=== PATIENT | male | born 1970 | race African-American/Black ===

== ENCOUNTER 2019-09-24 16:08 | Inpatient (IN) ==
[2019-09-24] MEDS ORDERED: ENOXAPARIN 100 MG/ML SYRINGE SUBCUT STA (17:14)
[2019-09-24] MEDS ORDERED: ASPIRIN 325 MG TABLET PO STA (17:14)
[2019-09-24] MEDS ORDERED: METOPROLOL TARTRATE 5 MG/5 ML VIAL IV STA (17:14)
[2019-09-24 17:22] LABS: Basophils # 0.1 10*3/uL (0.0-0.2); Basophils % 0.4 % (0.0-0.8); Eosinophils # 0.3 10*3/uL (0.0-0.87); Hematocrit 43.6 VOL% (42.0-52.0); Hemoglobin 13.8 GM/DL (14.0-18.0); Immature Granulocytes % 0.5 %; Immature Granulocytes Absolute 0.06 #; Lymphocytes # 3.5 10*3/uL (1.4-4.0); Lymphocytes % 28.6 % (21.2-54.2); Mean Corpuscular HGB Conc 31.7 GM/DL (32-36); Mean Corpuscular Volume 83.4 FL (87-102); Mean Platelet Volume 10.1 FL (9.6-12.0); Monocytes % 10.5 % (1.7-12.7); Platelet Count 274 T/CUMM (130-400); Red Blood Count 5.23 MC/CUMM (3.8-5.5); Red Cell Distribution Width 15.4 % (9.3-17.3); White Blood Count 12.2 T/CUMM (4-12)
[2019-09-24 17:59] LABS: Albumin 3.6 G/DL (3.4-5.0); Bilirubin,Total 0.6 MG/DL (0.2-1.0); Calcium 9.2 MG/DL (8.5-10.1); Osmolality,Calculated 281.3 MOS/KG (273-304); Total Protein 8.2 G/DL (6.4-8.3)
[2019-09-24] MEDS ORDERED: hydrALAZINE 20 MG/1 ML VIAL IV STA (18:27)
[2019-09-24 19:04] LABS: PT Patient Result 10.4 SECS (9.8-11.9)
[2019-09-24] MEDS ORDERED: hydrALAZINE 20 MG/1 ML VIAL IV ONE (19:54)
[2019-09-24] MEDS ORDERED: SODIUM CHLORIDE 0.9% 1,000 ML IV SCH (20:17)
[2019-09-24] MEDS ORDERED: ONDANSETRON 4 MG/2 ML VIAL IV PRN (20:17)
[2019-09-24] MEDS ORDERED: hydrALAZINE 20 MG/1 ML VIAL IV PRN (20:17)
[2019-09-24] MEDS ORDERED: MORPHINE 4 MG/1 ML VIAL IV PRN (20:17)
[2019-09-24] MEDS ORDERED: ACETAMINOPHEN 325 MG TABLET PO PRN (20:17)
[2019-09-24] MEDS: ENOXAPARIN 120 MG/0.8 ML SYRINGE SUBCUT SCH (20:58)
[2019-09-24] MEDS: DOCUSATE SODIUM 100 MG CAPSULE PO SCH (21:10)
[2019-09-24] MEDS: NITROGLYCERIN 2% OINT 1 INCH/GM PACK TOP SCH (23:39)
[2019-09-25 06:08] LABS: Basophils % 0.4 % (0.0-0.8); Eosinophils # 0.2 10*3/uL (0.0-0.87); Eosinophils % 2.2 % (0.00-10.9); Hematocrit 40.2 VOL% (42.0-52.0); Immature Granulocytes % 0.3 %; Immature Granulocytes Absolute 0.03 #; Lymphocytes # 2.5 10*3/uL (1.4-4.0); Mean Corpuscular HGB Conc 32.3 GM/DL (32-36); Mean Corpuscular Volume 81.7 FL (87-102); Mean Platelet Volume 9.9 FL (9.6-12.0); Neutrophils % 63.1 % (38.7-73.9); Platelet Count 225 T/CUMM (130-400); Red Blood Count 4.92 MC/CUMM (3.8-5.5); Red Cell Distribution Width 15.6 % (9.3-17.3); White Blood Count 9.7 T/CUMM (4-12)
[2019-09-25] MEDS: NITROGLYCERIN 2% OINT 1 INCH/GM PACK TOP SCH ×2 (06:32→13:15)
[2019-09-25 06:38] LABS: Albumin 3.2 G/DL (3.4-5.0); Bilirubin,Total 1.4 MG/DL (0.2-1.0); Calcium 8.9 MG/DL (8.5-10.1); Osmolality,Calculated 282.4 MOS/KG (273-304); Risk Ratio 9.14; Total Protein 7.3 G/DL (6.4-8.3); VLDL CHOLESTEROL 36.4 MG/DL
[2019-09-25] MEDS ORDERED: ASPIRIN EC 325 MG TABLET PO SCH (09:00)
[2019-09-25] MEDS ORDERED: PANTOPRAZOLE 40 MG TABLET PO SCH (09:00)
[2019-09-25] MEDS: DOCUSATE SODIUM 100 MG CAPSULE PO SCH (09:05)
[2019-09-25] MEDS: ENOXAPARIN 120 MG/0.8 ML SYRINGE SUBCUT SCH (09:05)
[2019-09-25] MEDS ORDERED: cloNIDine 0.1 MG TABLET PO PRN (09:14)
[2019-09-25] MEDS ORDERED: amLODIPine 10 MG TABLET PO SCH (09:30)
[2019-09-25] MEDS ORDERED: LABETALOL 200 MG TABLET PO SCH (09:30)
[2019-09-25 09:40] LABS: Troponin I 0.031 NG/ML (0.00-0.045)
[2019-09-25] MEDS ORDERED: FUROSEMIDE 20 MG/2 ML VIAL IV ONE (09:55)
[2019-09-25 12:13] VITALS: BP 135/82
[2019-09-25] MEDS ORDERED: ROSUVASTATIN 20 MG TABLET PO SCH (21:00)
[2019-09-26] MEDS ORDERED: ENOXAPARIN 40 MG/0.4 ML SYRINGE SUBCUT SCH (09:00)
== END 2019-09-25 15:02 | disposition home or self-care (01) | DRG 304 ==
LOC: N.ED 16:08 → N.EDINP 18:34 → N.TELEN 19:53
PROVIDERS: ADMIT Family Medicine; ATTEND Family Medicine